=== PATIENT | male | born 1935 | race Caucasian/White ===

== ENCOUNTER 2018-04-06 15:40 | Inpatient (IN) | payer MEDICARE ==
[~2018-04-06] VITALS: Ht 180.3 cm; Wt 59.0 kg
--- NOTE | 2018-04-06 20:15 | NUR ---
NURSE NOTES: DIRECT ADMIT FROM [facility] VIA AMBULANCE, ACCOMPANIED BY 3 ATTENDANTS, ADMITTED TO ROOM 418 BED 1 VIA GURNEY, UNDER THE CARE OF DR. JOHNSON. ADMITTING DIAGNOSIS, FAILURE TO THRIVE. PATIENT ALERT/ORIENTED X3, CONFUSED/FORGETFUL AT TIMES. DENIES PAIN. NO SIGNS AND SYMPTOMS OF ACUTE CARDIO RESPIRATORY DISTRESS/SHORTNESS OF BREATH, NO EDEMA NOTED. ABDOMEN SOFT/NON DISTENDED, AUDIBLE BOWEL SOUNDS, DENIES N/V/D. SKIN ASSESSMENT, NO OPEN AREAS NOTED, ARTERIAL WOUND NOTED TO LEFT AND RIGHT GREAT TOE. REQUESTED BEDPAN, LARGE BOWEL MOVEMENT NOTED, CARE PROVIDED WITH EVIDENCE OF NO BODY ODOR. ORIENTATED PATIENT TO ROOM/ENVIRONMENT. SIDE RAILS UP X3/BED IN LOWEST POSITION FOR SAFETY. CALL LIGHT WITHIN REACH. NAD.
[2018-04-06 20:30] VITALS: BP 120/79
--- NOTE | 2018-04-06 22:00 | NUR ---
NURSE NOTES: IV PLACED SUCCESSFULLY TO LEFT FOREARM/GAUGE 20, TOLERATED WELL.
[2018-04-06] MEDS ORDERED: DIGOXIN0.125 MG/2 ORAL (22:20)
[2018-04-06] MEDS ORDERED: VITAMIN C500 M1 ORAL (22:20)
[2018-04-06] MEDS ORDERED: HUMALOG100 UNIT/4 SUBQ (22:20)
[2018-04-06] MEDS ORDERED: MULTIVITAMINS1 EAC8 ORAL (22:20)
[2018-04-06] MEDS ORDERED: ELIQUIS5 MG PO (22:20)
[2018-04-06] MEDS ORDERED: MIRTAZAPINE15 MG ORAL (22:20)
[2018-04-07] VITALS: BP 101/61
[2018-04-07] MEDS: cefTRIAXone 1 GM in D5W 55 ML IVPB SCH (00:15)
[2018-04-07 04:00] VITALS: BP 127/80
[2018-04-07] MEDS: NovoLOG Insulin Flexpen SUBQ SCH ×4 (06:30→20:48)
--- NOTE | 2018-04-07 06:45 | NUR ---
NURSE NOTES: RESTED WELL, NO SIGNIFICANT CHANGE OF CONDITION NOTED THROUGHOUT THE NIGHT. SAFETY MAINTAINED. NAD. BSL MONITORED VIA GLUCOMETER WITH RESULT 94MG/DL, ASYMPTOMATIC, NO INSULIN COVERAGE.
[2018-04-07 07:23] LABS: BASOPHILS % (AUTO) 1.1 % (0.0-2.0); EOSINOPHILS % (AUTO) 1.8 % (0.0-3.0); HEMATOCRIT 40.4 % (42.0-52.0); HEMOGLOBIN 14.1 G/DL (14.2-18.0); LYMPHOCYTES % (AUTO) 43.2 % (20.0-45.0); MEAN CORPUSCULAR VOLUME 88 FL (80-99); MONOCYTES % (AUTO) 10.1 % (1.0-10.0); NEUTROPHILS % (AUTO) 43.9 % (45.0-75.0); PLATELET COUNT 145 K/UL (150-450); RED BLOOD COUNT 4.61 M/UL (4.70-6.10); WHITE BLOOD COUNT 7.5 K/UL (4.8-10.8)
--- NOTE | 2018-04-07 07:30 | NUR ---
HAND-OFF: Report given to STEVE ANTOINE.
--- NOTE | 2018-04-07 07:45 | NUR ---
NURSE NOTES: received patient A/A/Ox4, in bed. ON IVF and it's infusing well. NO c/o pain/discomfort noted. Consumed 100% breakfast. able to use urinal. keep bed in lowest position. siderails are up x3. call light is within reach. will cont to monitor.
[2018-04-07 07:48] LABS: ALANINE AMINOTRANSFERASE 12 U/L (12-78); ALBUMIN 2.3 G/DL (3.4-5.0); ALBUMIN/GLOBULIN RATIO 0.5 (1.0-2.7); ALKALINE PHOSPHATASE 150 U/L (46-116); ANION GAP 7 mmol/L (5-15); ASPARTATE AMINO TRANSFERASE 21 U/L (15-37); BILIRUBIN,TOTAL 0.4 MG/DL (0.2-1.0); BLOOD UREA NITROGEN 9 mg/dL (7-18); CALCIUM 9.6 MG/DL (8.5-10.1); CARBON DIOXIDE 27 MMOL/L (21-32); CHLORIDE 98 MMOL/L (98-107); CREATININE 0.8 MG/DL (0.55-1.30); POTASSIUM 3.5 MMOL/L (3.5-5.1); SODIUM 132 MMOL/L (136-145)
[2018-04-07 08:00] VITALS: BP 111/80
[2018-04-07] MEDS: Eliquis 2.5mg tablet ORAL SCH ×2 (08:26→17:31)
[2018-04-07] MEDS: Multivitamin w/Minerals tab ORAL SCH (08:26)
[2018-04-07] MEDS: Digoxin 0.125mg tab ORAL SCH (08:26)
[2018-04-07] MEDS: Ascorbic Acid 500mg tab ORAL SCH ×2 (08:26→17:31)
[2018-04-07 12:00] VITALS: BP 109/77
--- NOTE | 2018-04-07 14:21 | NUR ---
RD ASSESSMENT & RECOMMENDATIONS SEE CARE ACTIVITY FOR COMPLETE ASSESSMENT DAILY ESTIMATED NEEDS: Needs based on Wt loss, underweight/ 62kg 30-35 kcals/kg 9664-8740 total kcals 1-1.5 g protein/kg 62-93 g total protein 25-30 mL/kg 2931-8260 total fluid mLs NUTRITION DIAGNOSIS: * Increased kcal/prot needs R/T recent significant wt loss, + wasting as evidenced by pt reports significant wt loss 50 pounds/27.7% wt loss in 10 months. currently @ 79% IBW. CURRENT DIET:CCHO MED, JUDE, soft easy chew PO DIET RECOMMENDATIONS: CCHO MED/ texture as tolerated + Glucerna 1 tetra charlene TID ADDITIONAL RECOMMENDATIONS: * Standing wt as able for accurate CBW * Weekly wt monitoring- recent significant wt loss per pt * Snacks TID in b/w meals * Consider lashon count x 48 hrs- FTT dx
--- NOTE | 2018-04-07 14:29 | NUR ---
NURSE NOTES: patient able to use urinal and urine has sediments and has foul smell. Patient on IVF and infusing well and instruct to drinnk adequate amount of fluids. PMD made aware. will cont to monitor.
[2018-04-07 16:00] VITALS: BP 115/85
--- NOTE | 2018-04-07 16:45 | Consultation ---
DATE OF CONSULTATION: 04/07/2018 CONSULTING PHYSICIAN: Cyndi Cornelius M.D. HISTORY OF PRESENT ILLNESS: This is an 82-year-old male with a history of depression, anxiety, and failure to thrive who was admitted to the hospital from [facility] via ambulance. The patient has been losing weight. He was able to answer simple questions. However, has been having memory impairment and at times is confused. He was on Remeron prior to the admission. I believe he was placed on Remeron for losing weight and depression. He is a poor historian. The patient is having also episodes of anxiety. Denies any pain. No suicidal or homicidal ideations. PAST PSYCHIATRIC HISTORY: Depression, anxiety, failure to thrive. PAST MEDICAL HISTORY: Significant for failure to thrive, UTI, diabetes mellitus. ALLERGIES: No known drug allergies. SUBSTANCE ABUSE HISTORY: No known history of illicit drug use or alcohol. MENTAL STATUS EXAMINATION: The patient was alert, oriented to time, self, place, and situation. Mood is dysphoric. Affect is constricted. Congruent mood. Thought process is concrete. Thought content, no suicidal or homicidal ideation. Insight and judgment is fair. Memory is impaired. ASSESSMENT: [place] I Major depressive disorder. [place] II Deferred. [place] III Failure to thrive. [place] IV Low. [place] V 50. PLAN: The patient will be started on Remeron 7.5 mg at bedtime. He was provided with reality orientation and supportive therapy. Cyndi Cornelius M.D. DR: YANIQUE JOB#: [id number] CC:
--- NOTE | 2018-04-07 17:09 | NUR ---
CASE MANAGEMENT:REVIEW BIBA A DIRECT ADMIT FROM [facility] SI: FAILURE TO THRIVE 98.7 101 17 120/79 98% ON RA H/H-14.1/40.4 PLT-145 NA-132 IS: IVF@75/HR IV ROCEPHIN Q24 REMERON PO QHS ELIQUIS PO BID DIGOXIN PO QD : MED/SURG 4 [facility] MET
[2018-04-07] MEDS ORDERED: Isovue-300 100ml vial INJ PRN (17:15)
--- NOTE | 2018-04-07 17:32 | NUR ---
NURSE NOTES: patient urine color is yellow clear with no sediments present. drinking adequate amount of fluids. and IVF infusing well. Able to feed self. will cont to monitor.
--- NOTE | 2018-04-07 19:06 | NUR ---
HAND-OFF: Report given to
--- NOTE | 2018-04-07 19:45 | NUR ---
NURSE NOTES: Received patient awake and alert in bed. No acute signs of distress. Denies pain. IV site L forearm, patent, dressing dry and intact, running abx [id number] piggyback. 2 siderails up, bed on lowest position, call light within reach.
[2018-04-07 20:00] VITALS: BP 128/81
--- NOTE | 2018-04-07 22:30 | History and Physical Report ---
DATE OF ADMISSION: 04/06/2018 HISTORY OF PRESENT ILLNESS: This is an elderly male, came to the , malnutrition, failure to thrive, history of pancreatic CA, abdominal pain, CHF and depression. He is on Pepcid, digoxin and insulin. PHYSICAL EXAMINATION: GENERAL: This is an elderly cachectic male, who is currently in the bed, confused. VITAL SIGNS: Blood pressure 109/77, pulse 95, respirations 19, and temperature 97. HEENT: . NECK: Supple. CHEST: Bilaterally clear. CARDIOVASCULAR: Irregular rhythm. ABDOMEN: Soft. Mild tenderness. EXTREMITIES: CCE. NEUROLOGICAL: Generalized weakness. LABORATORY DATA: Albumin is 2.3. ASSESSMENT: 1. Severe malnutrition. 2. Urinary tract infection. 3. Dehydration. 4. Hypernatremia. PLAN: We will admit on medical floor. Continue IV fluid. Add antibiotics. Check HIDA scan. Consider GI consult. Rufus Cotton M.D. DR: BISI JOB#: [id number] CC:
[2018-04-08] MEDS: cefTRIAXone 1 GM in D5W 55 ML IVPB SCH (00:18)
[2018-04-08 04:00] VITALS: BP 136/96
--- NOTE | 2018-04-08 06:10 | NUR ---
NURSE NOTES: Patient has scheduled CT abd w/contrast 04/08/18 but patient refused procedure stating he just had one recently. Patient refused to sign consent after I explained procedure indication per MD order. Will follow up with MD.
[2018-04-08] MEDS: NovoLOG Insulin Flexpen SUBQ SCH ×4 (06:20→21:00)
--- NOTE | 2018-04-08 07:06 | NUR ---
HAND-OFF: Report given to STEVE Macias.
[2018-04-08 08:00] VITALS: BP 143/92
[2018-04-08] MEDS: Ascorbic Acid 500mg tab ORAL SCH ×2 (08:07→17:05)
[2018-04-08] MEDS: Multivitamin w/Minerals tab ORAL SCH (08:07)
[2018-04-08] MEDS: Eliquis 2.5mg tablet ORAL SCH ×2 (08:07→17:05)
[2018-04-08] MEDS: Digoxin 0.125mg tab ORAL SCH (08:08)
--- NOTE | 2018-04-08 10:00 | NUR ---
NURSE NOTES: patient had spoken with Dr. Goodrich regarding the CT abdomen/pelvis. patient will sign the contrast consent and explained that he will be NPO mary hollins Tuesday. will cont to monitor. Addendum: 04/08/18 at 1457 by JARRED CUELLAR LVN patient signed consent for radiology contrast.
[2018-04-08] MEDS ORDERED: 1/2 NS 1000ml IV ONE (10:20)
[2018-04-08 12:00] VITALS: BP 140/91
--- NOTE | 2018-04-08 15:30 | Progress Note ---
DATE: 04/08/2018 SUBJECTIVE: This is an 82-year-old male complaining of abdominal pain. He was earlier refusing for , but now he has agreed. OBJECTIVE: VITAL SIGNS: His blood pressure 136/96, pulse 106. No fever. CHEST: Bilaterally clear. CARDIOVASCULAR: Regular rhythm. ABDOMEN: Soft. EXTREMITIES: No CCE. ASSESSMENT: 1. Abdominal pain. 2. Hypokalemia. 3. Severe malnutrition. 4. History of pancreatic CA per the patient. PLAN: We are waiting for CT of abdomen. GI consult. Continue current treatment. Continue antibiotic. Continue sliding scale and Accu-Chek. Continue medical treatment. Rufus Cotton M.D. DR: Ced JOB#: [id number] CC:
[2018-04-08 16:00] VITALS: BP 125/79
--- NOTE | 2018-04-08 19:07 | NUR ---
HAND-OFF: Report given to Martha.
--- NOTE | 2018-04-08 19:30 | NUR ---
NURSE NOTES: RECEIVED PATIENT LYING IN BED, AWAKE, VERBALLY RESPONSIVE, DENIES PAIN. NO SIGNS AND SYMPTOMS OF ACUTE CARDIO RESPIRATORY DISTRESS/SHORTNESS OF BREATH, NO EDEMA NOTED. NOTED WITH ARTERIAL WOUNDS TO BILATERAL GREAT TOE, ELEVATED EACH EXTREMITY ON PILLOW LENGTHWISE WITH HEELS FLOATING. NO COMPLAINT OF GI DISCOMFORT, NO N/V/D. IV RESITED TO LEFT FOREARM/GAUGE 22, TOLERATED WELL. SIDE RAILS UP X3/BED IN LOWEST POSITION FOR SAFETY. CALL LIGHT WITHIN REACH, ENCOURAGED PATIENT TO UTILIZE CALL LIGHT FOR ASSISTANCE, VERBALIZED UNDERSTANDING. FREQUENT ROUNDING FOR SAFETY/NEEDS.
[2018-04-08 20:00] VITALS: BP 136/84
--- NOTE | 2018-04-08 23:52 | General Progress Note ---
Assessment/Plan Assessment/Plan [place] I Major depressive disorder. [place] II Deferred. [place] III Failure to thrive. [place] IV Low. [place] V 50. PLAN: The patient will be started on Remeron 7.5 mg at bedtime. He was provided with reality orientation and supportive therapy. Subjective Neurologic/Psychiatric: Reports: anxiety, depressed, emotional problems Allergies: Coded Allergies: NO KNOWN ALLERGIES (Verified Allergy, Unknown, 04/06/18) Objective Last 24 Hour Vital Signs Date Time Temp Pulse Resp B/P (MAP) Pulse Ox O2 Delivery O2 Flow Rate FiO2 04/08/18 20:00 97.0 88 18 136/84 (101) 98 04/08/18 16:00 98.4 90 19 125/79 (94) 97 04/08/18 12:00 96.8 82 18 140/91 (107) 100 04/08/18 09:00 Room Air 04/08/18 08:08 96 04/08/18 08:00 97.0 103 20 143/92 (109) 97 04/08/18 04:00 97.3 106 18 136/96 (109) 97 Intake and Output 04/07/18 04/08/18 18:59 06:59 Intake Total 1380 ml Output Total 1400 ml 700 ml Balance -20 ml -700 ml Intake Oral 480 ml IV Total 900 ml Output Urine Total 1400 ml 700 ml # Bowel Movements 3 Height (Feet): 5 Height (Inches): 11.00 Weight (Pounds): 130 General Appearance: no apparent distress, alert Cyndi Cornelius MD Apr 08, 2018 23:52
[2018-04-08 23:58] VITALS: BP 99/64
[2018-04-09] MEDS: cefTRIAXone 1 GM in D5W 55 ML IVPB SCH ×2 (00:06→23:26)
[2018-04-09 04:00] VITALS: BP 118/74
--- NOTE | 2018-04-09 06:15 | NUR ---
NURSE NOTES: RESTED WELL, NO SIGNIFICANT CHANGE OF CONDITION NOTED THROUGHOUT THE NIGHT. SAFETY MAINTAINED. NAD.
[2018-04-09] MEDS: NovoLOG Insulin Flexpen SUBQ SCH ×4 (06:30→21:00)
--- NOTE | 2018-04-09 07:30 | NUR ---
HAND-OFF: Report given to STEVE ANTOINE.
[2018-04-09 08:00] VITALS: BP 132/91
[2018-04-09] MEDS: Multivitamin w/Minerals tab ORAL SCH (08:11)
[2018-04-09] MEDS: Ascorbic Acid 500mg tab ORAL SCH ×2 (08:11→17:09)
[2018-04-09] MEDS: Eliquis 2.5mg tablet ORAL SCH ×2 (08:12→17:09)
[2018-04-09] MEDS: Digoxin 0.125mg tab ORAL SCH (08:12)
[2018-04-09] MEDS ORDERED: 1/2 NS 1000ml IV ONE (09:26)
--- NOTE | 2018-04-09 11:47 | NUR ---
NURSE NOTES: patient been consuming chips and cola this am and had explained to him to minimize or refrain from eating and drinking so muich cola. He stated that don't worry about it I know my body". I reminded him his diet. He refused insulin this lunch time. will cont to monitor.
[2018-04-09 12:09] VITALS: BP 138/74
--- NOTE | 2018-04-09 15:12 | NUR ---
NURSE NOTES: IV access got occluded. patiient has a good amount of food and fluid intake. will resite. Addendum: 04/09/18 at 1917 by JARRED CUELLAR LVN resited on LH 24g
[2018-04-09 16:00] VITALS: BP 125/83
--- NOTE | 2018-04-09 19:17 | NUR ---
HAND-OFF: Report given to
--- NOTE | 2018-04-09 19:29 | Progress Note ---
DATE: 04/09/2018 SUBJECTIVE: This is an elderly male, who is currently still complaining of abdominal pain. No nausea or vomiting. The patient had GI consult and CT of abdomen. He has been initially refusing, but finally he agreed. He has now currently mild abdominal pain and tolerating diet. OBJECTIVE: VITAL SIGNS: Blood pressure is stable. CHEST: Bilaterally clear. CARDIOVASCULAR: Regular rhythm. ABDOMEN: Soft. Mild tenderness. EXTREMITIES: No CCE. NEUROLOGIC: No focal deficit. GENITOURINARY: Deferred. LABORATORY DATA: Not available. ASSESSMENT: 1. Abdominal pain. 2. History of pancreatic CA. 3. Anxiety. 4. Depression. PLAN: Continue current treatment. Continue . Continue liquid diet and GI consult. Continue supportive treatment. Rufus Cotton M.D. DR: Ced JOB#: [id number] CC:
--- NOTE | 2018-04-09 19:34 | NUR ---
NURSE NOTES: Patient in bed, awake, alert and verbally responsive. Able to make needs known. Respiration is even and unlabored. No complaint of pain or discomfort noted. Skin is warm and dry to touch. Abdomen is soft and non distended. No complaint of pain or discomfort noted. Bed in low and locked position. iv site noted. Iv fluid is infusing as ordered. Patient aware of NPO for midnight and procedure in the AM. Call light is at bedside.
[2018-04-09 20:00] VITALS: BP 105/67
--- NOTE | 2018-04-09 21:16 | NUR ---
NURSE NOTES: Patient is awake, alert. Refused insulin. Will reassess patient.
--- NOTE | 2018-04-09 21:32 | General Progress Note ---
Assessment/Plan Status: stable Assessment/Plan [place] I Major depressive disorder. [place] II Deferred. [place] III Failure to thrive. [place] IV Low. [place] V 50. Remeron 7.5 mg at bedtime. He was provided with reality orientation and supportive therapy. Subjective Neurologic/Psychiatric: Reports: anxiety, depressed Allergies: Coded Allergies: NO KNOWN ALLERGIES (Verified Allergy, Unknown, 04/06/18) Objective Last 24 Hour Vital Signs Date Time Temp Pulse Resp B/P (MAP) Pulse Ox O2 Delivery O2 Flow Rate FiO2 04/09/18 20:19 Room Air 04/09/18 20:00 97.5 89 17 105/67 (80) 98 04/09/18 16:00 98.1 68 18 125/83 (97) 95 04/09/18 12:09 99.3 81 18 138/74 (95) 97 04/09/18 09:00 Room Air 04/09/18 08:12 100 04/09/18 08:00 98.4 99 18 132/91 (105) 99 04/09/18 04:00 97.3 87 20 118/74 (89) 99 04/08/18 23:58 97.7 72 18 99/64 (76) 100 Intake and Output 04/08/18 04/09/18 18:59 06:59 Intake Total 2280 ml 1108 ml Output Total 1500 ml 800 ml Balance 780 ml 308 ml Intake Oral 1380 ml 240 ml IV Total 900 ml 868 ml Output Urine Total 1500 ml 800 ml # Voids 1 # Bowel Movements 1 2 Height (Feet): 5 Height (Inches): 11.00 Weight (Pounds): 130 General Appearance: WD/WN, no apparent distress, alert Cyndi Cornelius MD Apr 09, 2018 21:32
[2018-04-10] VITALS (7 sets, daily range): BP systolic 120–155; BP diastolic 61–100
[2018-04-10] MEDS: NovoLOG Insulin Flexpen SUBQ SCH ×4 (05:58→21:00)
--- NOTE | 2018-04-10 07:13 | NUR ---
HAND-OFF: Report given to RN. Shabbir.
--- NOTE | 2018-04-10 07:46 | NUR ---
NURSE NOTES: pt in bed with no sob nor in any form of distress noted. kept Npo for CT abdomen. encouraged pt to drink oral barium. will continue to monitor
[2018-04-10] MEDS: Ascorbic Acid 500mg tab ORAL SCH ×2 (08:47→17:11)
[2018-04-10] MEDS: Eliquis 2.5mg tablet ORAL SCH ×2 (08:47→17:11)
[2018-04-10] MEDS: Digoxin 0.125mg tab ORAL SCH (08:47)
[2018-04-10] MEDS: Multivitamin w/Minerals tab ORAL SCH (08:47)
--- NOTE | 2018-04-10 11:17 | Diagnostic Imaging Report ---
Indication: Abdominal pain Technique: Continuous helical transaxial imaging of the abdomen and pelvis was obtained from the lung bases to the pubic symphysis during intravenous contrast administration. Coronal 2-D reformats were also obtained. Study obtained in a Siemens sensation [address] Automatic Exposure Control was utilized. Total Dose length Product (DLP): 1547.[address] Dose Index Volume (CTDIvol): 16.81,19.11 mGy Comparison: None Findings: There is a mild degree of the peripancreatic the soft tissues stranding and ill definition of the pancreas suspicious for acute pancreatitis. Please correlate clinically. The main pancreatic duct is a prominent in size. Within the body of the pancreas (axial images 30-35 the pancreas appears ill-defined focally. There could be underlying mass. This could represent focal phlegmon or related to the pancreatitis. Pneumobilia is present. Liver parenchymal attenuation is normal. There are no focal lesions within the liver identified. Spleen is unremarkable. The gallbladder is absent. The main portal vein enhances normally. There is moderate calcification of aorta. There is no adenopathy appreciated. Lung bases are essentially clear. Kidneys are unremarkable. Diverticula noted within the sigmoid colon. No free fluid identified. Thickening of the wall the urinary bladder noted. Small left inguinal hernia containing fat demonstrated. There is narrowing of intervertebral discs and accompanying endplate osteophyte formation. Hypertrophied facet joints also demonstrated.. IMPRESSION: Suspicion of acute pancreatitis. Focal area of the pancreas asymmetry with suggestion of underlying phlegmon within the body of the pancreas. Differential diagnosis includes tumor. Follow-up is recommended. Pneumobilia suggestive of previous ERCP/papillotomy. Status post cholecystectomy. Atherosclerotic disease. Suspected cystitis. Correlate clinically. Small left inguinal hernia containing fat. Spondylosis. The CT scanner at [facility] is accredited by the [employer] and the scans are performed using dose optimization techniques as appropriate to a performed exam including Automatic Exposure control.
--- NOTE | 2018-04-10 16:00 | Progress Note ---
DATE: 04/10/2018 SUBJECTIVE: This is an elderly male, who is still complaining of abdominal pain. OBJECTIVE: VITAL SIGNS: Blood pressure 135/79, pulse 100, and temperature 98.3. CHEST: Bilaterally clear. CARDIOVASCULAR: Regular rhythm. No gallop. No murmur. ABDOMEN: Soft. EXTREMITIES: CCE. NEUROLOGICAL: Generalized weakness. ASSESSMENT: 1. Abdominal pain. 2. UTI. 3. Dehydration. PLAN: The patient was supposed to have a CT scan, refused, and we will currently continue current treatment. Rufus Cotton M.D. DR: ARMANDO JOB#: [id number] CC:
[2018-04-10] MEDS ORDERED: Levofloxacin 500mg tab ORAL SCH (18:00)
--- NOTE | 2018-04-10 19:23 | NUR ---
HAND-OFF: Report given to MADDISON martinez.
--- NOTE | 2018-04-10 19:56 | NUR ---
NURSE NOTES: Received patient comfortably sleeping. Kept clean and dry.
[2018-04-11] MEDS: cefTRIAXone 1 GM in D5W 55 ML IVPB SCH (00:14)
[2018-04-11 04:19] VITALS: BP 142/65
[2018-04-11] MEDS: NovoLOG Insulin Flexpen SUBQ SCH ×2 (06:16→11:08)
--- NOTE | 2018-04-11 07:17 | NUR ---
HAND-OFF: Report given to Alesia Moore RN.
--- NOTE | 2018-04-11 07:35 | NUR ---
NURSE NOTES: received patient in bed, awake, alert and verbally responsive. Able to make needs known. Respiration is even and unlabored. denies pain or discomfort. Bed in low and locked position. iv site noted. Iv fluid is infusing as ordered. Call light is at bedside. stephanie clark
[2018-04-11 08:00] VITALS: BP 142/89
[2018-04-11] MEDS: Multivitamin w/Minerals tab ORAL SCH (08:17)
[2018-04-11] MEDS: Digoxin 0.125mg tab ORAL SCH (08:17)
[2018-04-11] MEDS: Ascorbic Acid 500mg tab ORAL SCH (08:17)
[2018-04-11] MEDS: Eliquis 2.5mg tablet ORAL SCH (08:17)
[2018-04-11 11:24] VITALS: BP 136/93
--- NOTE | 2018-04-11 12:04 | NUR ---
*-* DISCHARGE PLANNING PATIENT HAS BEEN REFERRED BACK TO: [facility] P:[phone] F:[phone]
[2018-04-11] MEDS ORDERED: DIGOXIN125 MCG ORAL (12:10)
[2018-04-11] MEDS ORDERED: NOVOLOG100 UNIT/5 SUBQ (12:12)
--- NOTE | 2018-04-11 13:41 | NUR ---
*-* DISCHARGE PLANNED PATIENT IS DISCHARGED BACK TO: [facility] ROOM# 405-A DETENTION T:[phone] FOR NURSE TO NURSE REPORT [facility] HAS BEEN ARRANGED FOR FINAL ASSEMBLY INSPECTOR AT 1500 S/W FLAKO [id number]
--- NOTE | 2018-04-11 13:58 | NUR ---
RD ASSESSMENT & RECOMMENDATIONS SEE CARE ACTIVITY FOR COMPLETE ASSESSMENT DAILY ESTIMATED NEEDS: Needs based on Wt loss, underweight/ 62kg 30-35 kcals/kg 3507-9652 total kcals 1-1.5 g protein/kg 62-93 g total protein 25-30 mL/kg 4541-3856 total fluid mLs NUTRITION DIAGNOSIS: * Increased kcal/prot needs R/T recent significant wt loss, + wasting as evidenced by pt reports significant wt loss 50 pounds/27.7% wt loss in 10 months. currently @ 79% IBW. CURRENT DIET: CCHO MED, JUDE, soft easy chew PO DIET RECOMMENDATIONS: CCHO MED/ texture as tolerated + Glucerna 1 tetra charlene TID ADDITIONAL RECOMMENDATIONS: * Standing wt as able for accurate CBW * Weekly wt monitoring- recent significant wt loss per pt * Snacks TID in b/w meals * Consider lashon count x 48 hrs- FTT dx * Updated labs as able
--- NOTE | 2018-04-11 15:00 | NUR ---
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
--- NOTE | 2018-04-11 21:38 | General Progress Note ---
Assessment/Plan Assessment/Plan [place] I Major depressive disorder. [place] II Deferred. [place] III Failure to thrive. [place] IV Low. [place] V 50. Remeron 7.5 mg at bedtime. He was provided with reality orientation and supportive therapy. Subjective Date patient seen: Apr 11, 2018 Neurologic/Psychiatric: Reports: anxiety, depressed, emotional problems Allergies: Coded Allergies: NO KNOWN ALLERGIES (Verified Allergy, Unknown, 04/06/18) Objective Last 24 Hour Vital Signs Date Time Temp Pulse Resp B/P (MAP) Pulse Ox O2 Delivery O2 Flow Rate FiO2 04/11/18 11:24 97.5 89 18 136/93 (107) 98 04/11/18 08:17 88 04/11/18 08:00 96.6 99 18 142/89 (106) 98 04/11/18 08:00 Room Air 04/11/18 04:19 98.3 88 18 142/65 (90) 100 04/10/18 23:40 97.9 77 18 137/61 (86) 97 Intake and Output 04/10/18 04/11/18 19:00 07:00 Intake Total 1155 ml 1380 ml Output Total 1400 ml 2200 ml Balance -245 ml -820 ml Intake Oral 480 ml 500 ml IV Total 675 ml 880 ml Output Urine Total 1400 ml 2200 ml # Voids 3 # Bowel Movements 1 Height (Feet): 5 Height (Inches): 11.00 Weight (Pounds): 130 General Appearance: no apparent distress, alert Neurologic: oriented x 3, responsive, depressed affect Cyndi Cornelius MD Apr 11, 2018 21:38
--- NOTE | 2018-04-11 21:38 | General Progress Note ---
Assessment/Plan Status: stable, progressing Assessment/Plan [place] I Major depressive disorder. [place] II Deferred. [place] III Failure to thrive. [place] IV Low. [place] V 50. Remeron 7.5 mg at bedtime. He was provided with reality orientation and supportive therapy. Subjective Date patient seen: Apr 10, 2018 Neurologic/Psychiatric: Reports: anxiety, depressed Allergies: Coded Allergies: NO KNOWN ALLERGIES (Verified Allergy, Unknown, 04/06/18) Objective Last 24 Hour Vital Signs Date Time Temp Pulse Resp B/P (MAP) Pulse Ox O2 Delivery O2 Flow Rate FiO2 04/11/18 11:24 97.5 89 18 136/93 (107) 98 04/11/18 08:17 88 04/11/18 08:00 96.6 99 18 142/89 (106) 98 04/11/18 08:00 Room Air 04/11/18 04:19 98.3 88 18 142/65 (90) 100 04/10/18 23:40 97.9 77 18 137/61 (86) 97 Intake and Output 04/10/18 04/11/18 19:00 07:00 Intake Total 1155 ml 1380 ml Output Total 1400 ml 2200 ml Balance -245 ml -820 ml Intake Oral 480 ml 500 ml IV Total 675 ml 880 ml Output Urine Total 1400 ml 2200 ml # Voids 3 # Bowel Movements 1 Height (Feet): 5 Height (Inches): 11.00 Weight (Pounds): 130 General Appearance: WD/WN, no apparent distress, alert Neurologic: responsive, depressed affect Cyndi Cornelius MD Apr 11, 2018 21:38
--- NOTE | 2018-04-12 10:41 | Discharge Summary ---
Discharge Summary Discharge Summary _ DATE OF ADMISSION: 04/06/2018 DATE OF DISCHARGE: 04/11/2018 DISCHARGED BY: Dr. Cotton REASON FOR ADMISSION: 82 years old male with past medical history of pancreatic cancer, hypertension , congestive heart failure, diabetes mellitus, depression, atrial fibrillation , history of alcohol abuse, major depressive disorder , was sent from the [facility] facility for evaluation due to failure to thrive and abdominal pain.. CONSULTANTS: psychiatrist [facility] COURSE: Patient was admitted to medical surgical floor and started on the IV hydration and empiric antibiotics. Pain management was addressed. Nutritional recommendation implemented in plan of care. Symptomatic care provided , antiemetics administered as needed. Blood sugar was managed with sliding scale of insulin. Hemoglobin A 1c at goal- 6.0 Renal parameters and electrolytes were closely monitored. Electrolytes corrected as needed , namely hypokalemia. SNF medication were continued. Heart rate was controlled with Digoxin, anticoagulation with Eliquis was continued. CT of the abdomen and pelvis was eventually done on 04/10 , after patient declined CAT scan on multiply occasions and finally agreed to it. It revealed revealed acute pancreatitis with suggestion of underlying phlegmon within the body of pancreas. Differential diagnosis includes pancreatic tumor. Given history of pancreatic tumor, no further workup was done. No evidence of infection. Empiric antibiotic stopped. Psychiatrist closely followed and diagnosed patient with major depressive disorder. Reality orientation and supportive therapy provided. Patient started on Remeron at bedtime. Pain was controlled, patient was able to tolerate diet , nutritional recommendations implemented in plan of care and to be continued at the [facility] facility . Stable electrolytes and renal parameters. Patient stabilized and was ready for discharge to [facility] facility for continuation of care. Management of pancreatic cancer as outpatient. FINAL DIAGNOSES: Severe protein calorie malnutrition History of pancreatic cancer Abdominal pain likely secondary to pancreatic cancer Hypokalemia Diabetes mellitus Major depressive disorder Dehydration DISCHARGE MEDICATIONS: See Medication Reconciliation list. DISCHARGE INSTRUCTIONS: Patient was discharged to the [facility] facility. Follow up with medical doctor at the facility. I have been assigned to dictate discharge summary for this account. I was not involved in the patient's management. Tere Alvarez NP Apr 12, 2018 10:41
== END 2018-04-11 15:12 | DRG 640 ==
LOC: 4E 19:35
DX: E87.6 Hypokalemia (principal); E43 Unspecified severe protein-calorie malnutrition; K85.90 Acute pancreatitis without necrosis or infection, unspecified; Z68.1 Body mass index [BMI] 19.9 or less, adult; N39.0 Urinary tract infection, site not specified; C25.9 Malignant neoplasm of pancreas, unspecified; E87.0 Hyperosmolality and hypernatremia; G89.3 Neoplasm related pain (acute) (chronic); R62.7 Adult failure to thrive; M62.81 Muscle weakness (generalized); E86.0 Dehydration; F32.9 Major depressive disorder, single episode, unspecified; E11.9 Type 2 diabetes mellitus without complications; F41.9 Anxiety disorder, unspecified; Z79.4 Long term (current) use of insulin; I50.9 Heart failure, unspecified
CPT/HCPCS: 36415; 74177; 80053; 82962; 83036; 85025; 87081; J1815